=== PATIENT | female | born 1975 | race African-American/Black ===

== ENCOUNTER 2016-05-18 11:13 | Emergency (ER) | payer SELFPAY ==
[~2016-05-18] VITALS: Ht 167.6 cm; Wt 102.0 kg
[~2016-05-18 11:13] MED LIST: ACET325T21 PO; ACID1TAB7 PO; BROM5CAP11 PO; CLIN-60 PO; DOCU-30 PO; LEVE250T28 PO
[2016-05-18] MEDS ORDERED: SODIUM CHLORIDE 0.9% 1,000 ML IV ONE (12:06)
[2016-05-18] MEDS ORDERED: LORazepam 2 MG/ML, 1ML IVPush ONE (12:30)
[2016-05-18] MEDS ORDERED: ONDANSETRON 2MG/ML, 2ML IVPush ONE (12:30)
[2016-05-18] MEDS ORDERED: ONDANSETRON 2MG/ML, 2ML ONE (12:41)
[2016-05-18] MEDS ORDERED: LORazepam 2 MG/ML, 1ML ONE (12:41)
[2016-05-18 12:50] LABS: DAU SCREEN DISCLAIMER
[2016-05-18 13:10] LABS: HEMOGLOBIN 14.8 g/dL (11.7-16.4)
[2016-05-18 13:22] LABS: BLOOD UREA NITROGEN 9 mg/dL (7-18)
[2016-05-18 13:25] LABS: ASPARTATE AMINO TRANSFERASE 28 U/L (15-37)
[2016-05-18 14:46] VITALS: BP 114/79
== END 2016-05-18 15:27 | disposition home or self-care (01) ==
LOC: ED 12:30
DX: G40.909 Epilepsy, unspecified, not intractable, without status epilepticus (principal); I10 Essential (primary) hypertension
CPT/HCPCS: 36415; 70450; 71010; 80053; 80307; 85025; 85610; 93005; 96361; 96374; 96375; 99285; J2060; J2405; J7030

== ENCOUNTER 2016-10-07 22:03 | Emergency (ER) | payer OTHER ==
[~2016-10-07] VITALS: Ht 167.6 cm; Wt 111.4 kg
[2016-10-07] MEDS ORDERED: SODIUM CHLORIDE 0.9% 1,000ML IVBOLUS ONE (22:30)
[2016-10-07] MEDS ORDERED: FAMOTIDINE 20 MG/2 ML IVP ONE (22:30)
[2016-10-07] MEDS ORDERED: SODIUM CHLORIDE FLUSH 10ML SYR IVF ONE (22:30)
[2016-10-07] MEDS ORDERED: ONDANSETRON 2MG/ML, 2ML IVPush ONE (22:30)
[2016-10-07] MEDS ORDERED: FAMOTIDINE 20 MG/2 ML ONE (22:49)
[2016-10-07] MEDS ORDERED: ONDANSETRON 2MG/ML, 2ML ONE (22:49)
[2016-10-07 23:00] LABS: BLOOD UREA NITROGEN 11 mg/dL (7-18)
[2016-10-07 23:02] LABS: HEMATOCRIT 43.5 % (34.6-47.8); HEMOGLOBIN 14.5 g/dL (11.7-16.4); WHITE BLOOD COUNT 13.5 x10^3/uL (3.4-10)
[2016-10-08] MEDS ORDERED: PROMETHAZINE 25 MG/ML, 1ML ONE (00:18)
[2016-10-08] MEDS ORDERED: PROMETHAZINE 25 MG/ML, 1ML IM ONE (00:30)
[2016-10-08 00:52] VITALS: BP 118/79
== END 2016-10-08 00:59 | disposition home or self-care (01) ==
LOC: ED 23:31
DX: R11.2 Nausea with vomiting, unspecified (principal); R19.7 Diarrhea, unspecified; I10 Essential (primary) hypertension; G40.909 Epilepsy, unspecified, not intractable, without status epilepticus
CPT/HCPCS: 36415; 80048; 82040; 84703; 85025; 96361; 96372; 96374; 96375; 99284; J2405; J2550; J7030; S0028

== ENCOUNTER 2017-08-03 16:54 | Emergency (ER) | payer OTHER ==
[~2017-08-03] VITALS: Ht 167.6 cm; Wt 100.0 kg
[~2017-08-03 16:54] MED LIST changes: -BROM5CAP11 PO; +BROM5CAP12 PO; -CLIN-60 PO; +CLIN150C14 PO; +DOCU-131 PO; -DOCU-30 PO
[2017-08-03 17:09] VITALS: BP 132/87
== END 2017-08-03 17:45 | disposition home or self-care (01) ==
LOC: ED 17:00
DX: K04.7 Periapical abscess without sinus (principal); K08.89 Other specified disorders of teeth and supporting structures; I10 Essential (primary) hypertension; G40.909 Epilepsy, unspecified, not intractable, without status epilepticus; F17.210 Nicotine dependence, cigarettes, uncomplicated
CPT/HCPCS: 99283